=== PATIENT | female | born 1930 | race Two or more races ===

== ENCOUNTER 2022-03-09 11:33 | Outpatient (CLI) | payer MEDICARE, OTHER ==
[2022-03-09 13:03] LABS: MONOCYTES # (AUTO) 0.6 K/uL (0.1-1.30); PLATELET COUNT (AUTO) 379 K/uL (150-450)
[2022-03-09 13:13] LABS: URINE TOTAL PROTEIN 15.6 mg/dL (0-11.9)
[2022-03-09 13:27] LABS: BILIRUBIN,URINE NEGATIVE (NEGATIVE); COLOR,URINE YELLOW (YELLOW); LEUKOCYTE ESTERASE ,URINE NEGATIVE (NEGATIVE); NITRITE, URINE NEGATIVE (NEGATIVE); PROTEIN,URINE NEGATIVE (NEGATIVE); UGLUCOSE NEGATIVE (NEGATIVE); UROBILINOGEN,URINE 0.2 EU/dL (0.2)
[2022-03-09 13:29] LABS: C-REACTIVE PROTEIN 0.9 mg/dL (0.0-0.9); THYROID STIMULATING HORMONE 0.308 uIU/mL (0.358-3.74)
[2022-03-09 13:35] LABS: BASOPHILS % (AUTO) 0.4 % (0.0-2.0); EOSINOPHILS % (AUTO) 1.2 % (0.0-6.0); HEMATOCRIT 47 % (33-45); HEMOGLOBIN 15.6 g/dL (11.5-14.8); LYMPHOCYTES # (AUTO) 1.6 K/uL (0.8-4.8); LYMPHOCYTES % (AUTO) 19.6 % (20.0-44.0); MEAN CORPUSCULAR HGB CONC 33 g/dl (31.0-36.0); MEAN CORPUSCULAR VOLUME 89 fL (82-100); MONOCYTES % (AUTO) 7.6 % (2.0-12.0); NEUTROPHILS # (AUTO) 5.7 K/uL (1.8-8.9); NEUTROPHILS % (AUTO) 71.2 % (43.0-81.0)
[2022-03-09 13:49] LABS: ALBUMIN 3.4 g/dL (3.4-5.0); BILIRUBIN,TOTAL 0.4 mg/dL (0.2-1.0); CALCIUM, SERUM 9.7 mg/dL (8.5-10.1); CREATININE 0.8 mg/dL (0.6-1.3); MAGNESIUM 2.3 mg/dL (1.8-2.4); PHOSPHORUS 3.6 mg/dL (2.5-4.9); POTASSIUM 4.2 mmol/L (3.5-5.1); TOTAL PROTEIN, SERUM 7.6 g/dL (6.4-8.2)
[2022-03-09 14:11] LABS: BACTERIA,URINE Moderate /HPF (None Seen)
== END 2022-03-09 23:59 | disposition home or self-care (01) ==
LOC: MSC 11:33
PROVIDERS: ATTEND Internal Medicine
DX: R41.3 Other amnesia (principal); Z86.16 Personal history of COVID-19; I10 Essential (primary) hypertension; I48.91 Unspecified atrial fibrillation; Z79.01 Long term (current) use of anticoagulants; Z79.899 Other long term (current) drug therapy
CPT/HCPCS: 80053; 81001; 82043; 82306; 82607; 82746; 83036; 83735; 83970; 84100; 84155; 84439; 84443; 85025; 85652; 86140; G0463; 36415; 87086-TC; 87186-TC

== ENCOUNTER 2022-03-10 13:12 | Outpatient (CLI) | payer MEDICARE, MEDICAID | END 2022-03-10 23:59 | disposition home or self-care (01) | LOC: MRI 13:12 | PROVIDERS: ATTEND Internal Medicine | DX: Z75.3 Unavailability and inaccessibility of health-care facilities (principal) ==

== ENCOUNTER 2022-03-14 11:45 | Outpatient (CLI) | payer MEDICARE, MEDICAID | END 2022-03-14 23:59 | disposition home or self-care (01) | LOC: MSC 11:45 | PROVIDERS: ATTEND Internal Medicine | DX: E07.9 Disorder of thyroid, unspecified (principal); D75.1 Secondary polycythemia; R41.3 Other amnesia; Z86.16 Personal history of COVID-19; I10 Essential (primary) hypertension; I48.91 Unspecified atrial fibrillation; Z79.01 Long term (current) use of anticoagulants ==

== ENCOUNTER 2022-04-03 09:33 | Outpatient (CLI) | payer MEDICARE, OTHER | END 2022-04-03 23:59 | disposition home or self-care (01) | LOC: MRI 09:33 | PROVIDERS: ATTEND Internal Medicine | DX: G93.89 Other specified disorders of brain (principal); R41.3 Other amnesia | CPT/HCPCS: 70551-TC ==

== ENCOUNTER → 2022-04-06 | Outpatient (CLI) | payer MEDICARE, OTHER | END | disposition home or self-care (01) | LOC: MSC 15:30 | PROVIDERS: ATTEND Internal Medicine | DX: R41.3 Other amnesia (principal); D75.1 Secondary polycythemia; E07.9 Disorder of thyroid, unspecified; Z86.16 Personal history of COVID-19; I10 Essential (primary) hypertension; I48.91 Unspecified atrial fibrillation; Z79.01 Long term (current) use of anticoagulants ==